=== PATIENT | female | born 1955 | race Caucasian/White ===

== ENCOUNTER 2017-11-13 05:59 | Inpatient (IN) | payer BC, OTHER ==
[~2017-11-13] VITALS: Ht 162.6 cm; Wt 76.9 kg
[2017-11-13] MEDS ORDERED: DOCUSATE 100 MG CAPSULE PO PRN (07:00)
[2017-11-13] MEDS ORDERED: ACETAMINOPHEN 325 MG TABLET PO PRN (07:00)
[2017-11-13] MEDS ORDERED: hydrALAzine 20 MG/ML, 1ML IVPush PRN (07:00)
[2017-11-13] MEDS ORDERED: ENALAPRILAT 1.25 MG/ML, 2ML IVPush PRN (07:00)
[2017-11-13] MEDS ORDERED: ONDANSETRON 2MG/ML, 2ML IVPush PRN (07:00)
[2017-11-13] MEDS ORDERED: POLYETHYLENE GLYCOL 17 GM PACKET PO PRN (07:00)
[2017-11-13 07:55] LABS: FREE T4 (FREE THYROXINE) 1.03 ng/dL (0.76-1.46); TROPONIN I < 0.015 ng/mL (0.000-0.045)
[2017-11-13 07:59] LABS: HEMOGLOBIN A1C 5.8 % (4.2-6.3)
[2017-11-13 08:00] VITALS: BP 118/67
[2017-11-13 09:59] LABS: MICROSCOPIC AUTO
[2017-11-13 10:01] LABS: CULTURE INDICATED? YES
[2017-11-13] MEDS: SODIUM CHLORIDE 0.9% 1,000 ML IV SCH ×2 (10:02→21:02)
[2017-11-13] MEDS: CEFTRIAXONE PMX 1GM/50ML 50 ML IV SCH (11:00)
[2017-11-13 13:14] LABS: TROPONIN I < 0.015 ng/mL (0.000-0.045)
[2017-11-13 13:48] VITALS: BP 133/76
[2017-11-13 20:00] VITALS: BP 146/78
[2017-11-14 02:34] VITALS: BP 128/75
[2017-11-14 05:11] LABS: BASOPHILS # (AUTO) 0.02 x10^3/uL (0-0.1); BASOPHILS % (AUTO) 0 % (0-1); EOSINOPHILS # (AUTO) 0.09 x10^3/uL (0-0.4); EOSINOPHILS % (AUTO) 1 % (1-7); LYMPHOCYTES # (AUTO) 1.84 x10^3/uL (1-3.4); LYMPHOCYTES % (AUTO) 27 % (22-44); MD NO; MEAN CORPUSCULAR HEMOGLOBIN 29.7 pg (27.0-34.8); MEAN CORPUSCULAR HGB CONC 33.7 g/dL (32.4-35.8); MEAN CORPUSCULAR VOLUME 88.1 fL (80-100); MEAN PLATELET VOLUME 6.8 fL (7.4-10.4); MONOCYTES # (AUTO) 0.51 x10^3/uL (0.2-0.8); MONOCYTES % (AUTO) 7 % (2-9); NEUTROPHILS # (AUTO) 4.45 x10^3/uL (1.8-6.8); NEUTROPHILS % (AUTO) 64 % (42-75); PLATELET COUNT 306 x10^3/uL (130-400); RED BLOOD COUNT 4.22 x10^6/uL (3.82-5.3); RED CELL DISTRIBUTION WIDTH 13.4 % (9.6-15.2)
[2017-11-14 05:29] LABS: CHLORIDE 113 mmol/L (98-107)
[2017-11-14 05:35] LABS: ALANINE AMINOTRANSFERASE 16 U/L (12-78); ALBUMIN 3.3 g/dL (3.4-5.0); ALKALINE PHOSPHATASE 64 U/L (45-117); ANION GAP 4 mmol/L (5-15); BILIRUBIN,TOTAL 0.4 mg/dL (0.2-1.0); CALCIUM 8.2 mg/dL (8.5-10.1); CHOL/HDL RATIO 4.4; CHOLESTEROL, TOTAL 208 mg/dL (140-239); CREATININE 0.62 mg/dL (0.55-1.02); HDL CHOL % 23 % (28-40); HDL CHOLESTEROL (DIRECT) 47 mg/dL (40-60); LDL CHOLESTEROL,CALCULATED 138 mg/dL (54-169); LDL/HDL RATIO 2.9 (0.5-3.0); TOTAL PROTEIN 6.5 g/dL (6.4-8.2); TRIGLYCERIDES 113 mg/dL (50-200); VLDL CHOLESTEROL 23 mg/dL (0-25)
[2017-11-14 09:00] VITALS: BP 143/80
[2017-11-14] MEDS: CEFTRIAXONE PMX 1GM/50ML 50 ML IV SCH (10:16)
[2017-11-14] MEDS ORDERED: PNEUMOCOCCAL 23 VACCINE IM-VACC ONE (17:00)
[2017-11-14 19:45] VITALS: BP 134/75
== END 2017-11-14 21:44 | disposition home or self-care (01) | DRG 312 ==
LOC: 5SO 05:59
PROVIDERS: ADMIT Internal Medicine; ATTEND Internal Medicine
DX: R55 Syncope and collapse (principal); I49.3 Ventricular premature depolarization; Z87.828 Personal history of other (healed) physical injury and trauma; Z82.49 Family history of ischemic heart disease and other diseases of the circulatory system
CPT/HCPCS: 36415; 70551; 80053; 80061; 81001; 83036; 83735; 84439; 84443; 84484; 85025; 87077; 87086; 87186; 90732; 93005; 93306; 93880; J0696; J7030

== ENCOUNTER 2018-08-24 09:44 | Day surgery (SDC) | payer BC ==
[2018-08-22 10:41] VITALS: BP 131/72
[2018-08-22 10:41] LABS: BASOPHILS # (AUTO) 0.04 x10^3/uL (0-0.1); BASOPHILS % (AUTO) 1 % (0-1); EOSINOPHILS # (AUTO) 0.12 x10^3/uL (0-0.4); EOSINOPHILS % (AUTO) 2 % (1-7); LYMPHOCYTES # (AUTO) 1.84 x10^3/uL (1-3.4); LYMPHOCYTES % (AUTO) 23 % (22-44); MD NO; MEAN CORPUSCULAR HEMOGLOBIN 30.1 pg (27.0-34.8); MEAN CORPUSCULAR HGB CONC 33.8 g/dL (32.4-35.8); MEAN CORPUSCULAR VOLUME 88.8 fL (80-100); MEAN PLATELET VOLUME 7.1 fL (7.4-10.4); MONOCYTES # (AUTO) 0.57 x10^3/uL (0.2-0.8); MONOCYTES % (AUTO) 7 % (2-9); NEUTROPHILS % (AUTO) 68 % (42-75); PLATELET COUNT 326 x10^3/uL (130-400); RED BLOOD COUNT 4.67 x10^6/uL (3.82-5.3); RED CELL DISTRIBUTION WIDTH 13.3 % (9.6-15.2)
[2018-08-22 10:53] LABS: ANION GAP 3 mmol/L (5-15); CALCIUM 9.1 mg/dL (8.5-10.1); CHLORIDE 110 mmol/L (98-107); CREATININE 0.68 mg/dL (0.55-1.02)
[~2018-08-24] VITALS: Ht 166.1 cm; Wt 70.5 kg
[~2018-08-24 09:44] MED LIST: ASPI-496 PO; FEXO1TAB25 PO; METO25TA2 PO
[2018-08-24] MEDS ORDERED: SODIUM CHLORIDE 0.9% 1,000 ML IV ONE (09:56)
[2018-08-24] MEDS ORDERED: ASPIRIN 325 MG TABLET EC PO ONE (10:00)
[2018-08-24] MEDS ORDERED: ASPIRIN 325 MG TABLET EC ONE (10:15)
[2018-08-24] MEDS ORDERED: BIVALIRUDIN 250 MG ONE (11:59)
[2018-08-24] MEDS ORDERED: VERAPAMIL 2.5 MG/ML, 2ML ONE (11:59)
[2018-08-24] MEDS ORDERED: FENTANYL PF 100 MCG/2ML ONE (11:59)
[2018-08-24] MEDS ORDERED: MIDAZOLAM 1 MG/ML, 5ML ONE (11:59)
[2018-08-24] MEDS ORDERED: TICAGRELOR 90 MG TABLET ONE (11:59)
[2018-08-24] MEDS ORDERED: HEPARIN 1,000 UNITS/ML, 10ML ONE (11:59)
[2018-08-24] MEDS ORDERED: LIDOCAINE-MPF 1%, 5ML ONE (12:00)
[2018-08-24] MEDS ORDERED: NITROGLYCERIN 5 MG/ML, 10ML ONE (12:08)
== END 2018-08-24 15:12 | disposition home or self-care (01) ==
LOC: CACL 09:44
PROVIDERS: ATTEND Internal Medicine Cardiovascular Disease
DX: I25.119 Atherosclerotic heart disease of native coronary artery with unspecified angina pectoris (principal); Z72.89 Other problems related to lifestyle; Z88.5 Allergy status to narcotic agent; Z88.8 Allergy status to other drugs, medicaments and biological substances
CPT/HCPCS: 36415; 80048; 85025; 93458; 99156; C1769; C1894; J1644; J2250; J3010; J7030; Q9967; J0583